=== PATIENT | male | born 1985 | race Caucasian/White ===

== ENCOUNTER 2018-05-20 13:11 | Emergency (ER) | payer OTHER ==
[~2018-05-20] VITALS: Ht 177.8 cm; Wt 68.0 kg
[~2018-05-20 13:11] MED LIST: AUGMENTIN 875875 MG PO; CYCLOBENZAPRINE10 M1 PO; CYCLOBENZAPRINE5 M2 PO; DELTASONE20 MG PO; IBU800 MG PO; KETOROLAC TROME10 M1 PO; MEDROL4 M2 PO; MOTRIN800 MG PO; PERCOCET 5-3251 EACH PO; TRAMADOL HCL50 M1 PO; TRAMADOL50 MG PO
[2018-05-20 13:19] VITALS: BP 110/76
[2018-05-20] MEDS ORDERED: PERCOCET 5-3251 EACH PO (15:43)
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
== END 2018-05-20 16:04 ==
LOC: ERH 13:11
DX: Z76.0 Encounter for issue of repeat prescription (principal)
CPT/HCPCS: 99281